=== PATIENT | female | born 1960 | race Hispanic/Latino ===

== ENCOUNTER 2017-03-27 13:57 | Emergency (ER) | payer MEDICAID ==
[2017-03-27] MEDS ORDERED: guaiFENesin 200 mg/10 ml Syrup UD PO ONE (15:02)
[2017-03-27] MEDS ORDERED: Albuterol-Ipratrop 3 mg / 0.5 (3 ml) UD IH STA (15:02)
--- NOTE | 2017-03-27 15:16 | RAD ---
HISTORY: cough COMPARISON: Chest x-ray performed 11/14/16 TECHNIQUE: Chest PA and lateral FINDINGS: Examination limited by habitus. LUNGS: Nodular density at the left lung base suspected to reflect nipple shadow. Please note that chest x-ray has limited sensitivity for the detection of pulmonary masses. PLEURA: No significant pleural effusion identified. No definite pneumothorax . CARDIOVASCULAR: The cardiomediastinal silhouette appears within normal limits of size. OSSEOUS STRUCTURES: Degenerative changes of the spine. VISUALIZED UPPER ABDOMEN: Eventration of the right hemidiaphragm. OTHER FINDINGS: None. IMPRESSION: Nodular density at the left lung base appears to reflect nipple shadow. Repeat study with nipple markers may be considered if indicated.
[2017-03-27] MEDS ORDERED: guaiFENesin 100 mg/5 ml Syrup UD ONE (15:22)
--- NOTE | 2017-03-27 15:24 | ED PDOC ---
HPI: General Adult Time Seen by Provider: 03/27/17 14:24 Chief Complaint (Nursing): Flu-like Symptoms Chief Complaint (Provider): Flu-like Symptoms History Per: Patient History/Exam Limitations: no limitations Onset/Duration Of Symptoms: Days Additional Complaint(s): 56 y/o female with a past medical history of hypercholesterolemia and hypertension (not treating with medications; only takes [place]-3) presents to the emergency department with 4 day h/o fever, body aches, cough, productive sputum, chills, headache, sinus congestion, runny nose, and 3 episodes of vomiting (non-bloody, last night, no vomiting today). Denies chest pain, shortness of breath, difficulty breathing, palpitations, dizziness, abdominal pain or diarrhea. PMD: Dr. Triana Past Medical History Reviewed: Historical Data, Nursing Documentation, Vital Signs Vital Signs: Last Vital Signs Temp 98.3 F 03/27/17 16:24 Pulse 85 03/27/17 16:24 Resp 16 03/27/17 16:24 BP 111/76 03/27/17 16:24 Pulse Ox 97 03/27/17 16:24 - Medical History PMH: HTN, Hypercholesterolemia Denies: Chronic Kidney Disease - Surgical History Surgical History: Appendectomy - Family History Family History: States: Unknown Family Hx - Immunization History Hx Tetanus Toxoid Vaccination: No Hx Influenza Vaccination: No Hx Pneumococcal Vaccination: No - Home Medications Home Medications: Ambulatory Orders Medication Instructions Recorded Albuterol 0.083% [Albuterol 3 ml IH Q4 #100 neb 03/27/17 Sulfate 3 Ml] Albuterol HFA [Ventolin HFA 90 2 puff IH [id number] #1 puff 03/27/17 mcg/actuation (8 g)] Azithromycin [Z-Baljit] 250 mg PO DAILY #6 tab 03/27/17 Guaifenesin 400 mg PO QID #20 tablet 03/27/17 Nebulizer [Aeroeclipse] 1 each MC PRN PRN #1 each 03/27/17 - Allergies Allergies/Adverse Reactions: Allergies Allergy/AdvReac Type Severity Reaction Status Date / Time No Known Allergies Allergy Verified 03/27/17 14:02 Review of Systems ROS Statement: Except As Marked, All Systems Reviewed And Found Negative Constitutional: Positive for: Fever, Chills, Other (body aches) ENT: Positive for: Nose Discharge, Nose Congestion Cardiovascular: Negative for: Chest Pain, Palpitations Respiratory: Positive for: Cough, Sputum (Productive). Negative for: Shortness of Breath, Other (difficulty breathing) Gastrointestinal: Positive for: Vomiting (3 episodes ). Negative for: Abdominal Pain, Diarrhea Neurological: Positive for: Headache. Negative for: Dizziness Physical Exam - Reviewed Nursing Documentation Reviewed: Yes Vital Signs Reviewed: Yes - Physical Exam Appears: Positive for: Non-toxic, No Acute Distress Head Exam: Positive for: ATRAUMATIC, NORMOCEPHALIC Skin: Positive for: Normal Color, Warm, Dry Eye Exam: Positive for: Normal appearance, EOMI, PERRL ENT: Positive for: Normal ENT Inspection. Negative for: Pharyngeal Erythema Neck: Positive for: Normal, Supple Cardiovascular/Chest: Positive for: Regular Rate, Rhythm. Negative for: Murmur Respiratory: Positive for: Rhonchi (Scattered rhonci). Negative for: Accessory Muscle Use, Respiratory Distress Gastrointestinal/Abdominal: Positive for: Normal Exam, Soft. Negative for: Tenderness Back: Positive for: Normal Inspection Extremity: Positive for: Normal ROM. Negative for: Pedal Edema Neurologic/Psych: Positive for: Alert, Oriented - ECG O2 Sat by Pulse Oximetry: 100 (RA) Pulse Ox Interpretation: Normal Medical Decision Making Medical Decision Making: Time: 14:24 Initial impression: Flu-like symptoms Initial plan: --Chest Two Views (PA/LAT) (RAD) --Duoneb 3 ml IH --Robitussin 400 mg PO --Motrin 600 mg PO --Peak Flow PRE/POST TX --revaluation CXR: NAD, as read by PA. On re-evaluation, patient remains awake, alert and oriented x3, in no respiratory distress, speaking in full sentences. States that she feels better and has no additional complaints at this time. Denies headache, chest pain, dyspnea, palpitations, SOB, nausea or any other complaints. Repeat lung exam, BS clear equal b/l, no W/R/R. Diagnostic results d/w the patient in great detail. Advised that she needs to f/u her BP with her PMD without fail. Based on history, exam and diagnostic studies, plan will be for outpatient f/u with pmd. VS T98.3 P85 BP111/76 R16 97%RA Patient verbalize understanding of the need for further outpatient care and follow up treatment. The patient was given the opportunity to ask any questions. Follow up with pmd in 2 days without fail for re-evaluation.Take medications as prescribed. Return to the ER at any time for any new or worsening symptoms. Scribe Attestation: Documented by Delmi Palacios, acting as a scribe for Sharmila Phelan PA-C. Provider Scribe Attestation: All medical record entries made by the Scribe were at my direction and personally dictated by me. I have reviewed the chart and agree that the record accurately reflects my personal performance of the history, physical exam, medical decision making, and the department course for this patient. I have also personally directed, reviewed, and agree with the discharge instructions and disposition. Disposition - Clinical Impression Clinical Impression: Bronchitis - Disposition Disposition: Routine/Home Disposition Time: 16:00 Condition: IMPROVED Additional Instructions: Follow up with pmd in 2 days without fail for re-evaluation.Take medications as prescribed. Return to the ER at any time for any new or worsening symptoms. Prescriptions: Albuterol HFA [Ventolin HFA 90 mcg/actuation (8 g)] 2 puff IH [id number] #1 puff Albuterol 0.083% [Albuterol Sulfate 3 Ml] 3 ml IH Q4 #100 neb Azithromycin [Z-Baljit] 250 mg PO DAILY #6 tab Guaifenesin 400 mg PO QID #20 tablet Nebulizer [Aeroeclipse] 1 each MC PRN PRN #1 each PRN Reason: Cough Instructions: Acute Bronchitis (ED) Forms: [facility] ED School/Work Excuse Print Language: AMHARIC - PA / [employer] / Resident Statement MD/DO has reviewed & agrees with the documentation as recorded.
[2017-03-27] MEDS ORDERED: Albuterol-Ipratrop 3 mg / 0.5 (3 ml) UD ONE (15:28)
[2017-03-27 16:25] VITALS: BP 111/76; PULSE 85; RESP 16; TEMP 98.3
[2017-03-27 17:31] VITALS: O2SAT 100
== END 2017-03-27 16:49 | disposition home or self-care (01) ==
LOC: H.ER 13:57
DX: J40 Bronchitis, not specified as acute or chronic (principal); I10 Essential (primary) hypertension; E78.00 Pure hypercholesterolemia, unspecified; R05 Cough

== ENCOUNTER 2017-08-18 20:52 | Emergency (ER) | payer MEDICAID ==
[2017-08-18 21:22] VITALS: BP 140/93; PULSE 74; RESP 16; TEMP 98; O2SAT 99
[2017-08-18] MEDS ORDERED: Sodium Chloride 0.9% 1,000 ML IV STA (21:38)
[2017-08-18 21:48] LABS: BASO # 0.1 K/uL (0.0-0.2); BASO % 1.5 % (0.0-2.0); EOS # 0.1 K/uL (0.0-0.7); EOS % 1.5 % (0.0-4.0); LYMPH # 1.6 K/uL (1.0-4.3); MEAN CELL VOLUME 94.3 fl (81.0-99.0); MEAN CORPUSCULAR HGB CONC 32.9 g/dL (33.0-37.0); MEAN PLATELET VOLUME 8.9 fl (7.2-11.7); MONO # 0.6 K/uL (0.0-0.8); NEUT # 2.9 K/uL (1.8-7.0); NRBC % 0.2 % (0.0-0.0); RED CELL DISTRIBUTION WIDTH 13.9 % (11.5-14.5); WHITE BLOOD COUNT 5.2 K/uL (4.8-10.8)
[2017-08-18 21:54] LABS: BLOOD UREA NITROGEN 16 mg/dl (7-17); CALCIUM 8.7 mg/dL (8.4-10.2); CARBON DIOXIDE 22 mmol/L (22-30); CHLORIDE 107 mmol/L (98-107); GFR AFRICAN-AMERICAN > 60; GLUCOSE,RANDOM 89 mg/dL (65-105); SODIUM 141 mmol/l (132-148)
[2017-08-18 21:57] LABS: POTASSIUM 5.4 MMOL/L (3.6-5.0)
--- NOTE | 2017-08-18 22:08 | ED PDOC ---
Syncope/Near Syncope/Dizziness Time Seen by Provider: 08/18/17 21:20 Chief Complaint (Nursing): Dizziness/Lightheaded Chief Complaint (Provider): Dizziness/Lightheaded History Per: Patient History/Exam Limitations: no limitations Onset/Duration Of Symptoms: Days (x3) Current Symptoms Are (Timing): Still Present Additional Complaint(s): Becca Espitia is a 56 year old female with previous medical history of psychiatric disease, hypertension and hypercholesterolemia, who presents to the emergency department for an evaluation of dizziness associated with room spinning and loss of consciousness for "a few moments" on 08/16/17. Denied chest pain or shortness of breath. PMD: none provided Past Medical History Reviewed: Historical Data, Nursing Documentation, Vital Signs Vital Signs: Last Vital Signs Temp 98 F 08/18/17 21:19 Pulse 74 08/18/17 21:19 Resp 16 08/18/17 21:19 BP 140/93 H 08/18/17 21:19 Pulse Ox 99 08/18/17 21:19 - Medical History PMH: HTN, Hypercholesterolemia Denies: Chronic Kidney Disease - Surgical History Surgical History: Appendectomy - Family History Family History: States: Unknown Family Hx - Social History Current smoker - smoking cessation education provided: No Ex-Smoker (has not smoked in the last 12 months): No Alcohol: Occasional Drugs: Denies - Immunization History Hx Tetanus Toxoid Vaccination: No Hx Influenza Vaccination: No Hx Pneumococcal Vaccination: No - Home Medications Home Medications: Ambulatory Orders Medication Instructions Recorded Albuterol 0.083% [Albuterol 3 ml IH Q4 #100 neb 03/27/17 Sulfate 3 Ml] Albuterol HFA [Ventolin HFA 90 2 puff IH [id number] #1 puff 03/27/17 mcg/actuation (8 g)] Azithromycin [Z-Baljit] 250 mg PO DAILY #6 tab 03/27/17 Guaifenesin 400 mg PO QID #20 tablet 03/27/17 Nebulizer [Aeroeclipse] 1 each MC PRN PRN #1 each 03/27/17 Meclizine [Meclizine*] 25 mg PO Q6 #30 tab 08/18/17 - Allergies Allergies/Adverse Reactions: Allergies Allergy/AdvReac Type Severity Reaction Status Date / Time No Known Allergies Allergy Verified 03/27/17 14:02 Review of Systems ROS Statement: Except As Marked, All Systems Reviewed And Found Negative Cardiovascular: Negative for: Chest Pain Respiratory: Negative for: Shortness of Breath Gastrointestinal: Positive for: Nausea, Vomiting (x1) Neurological: Positive for: Dizziness (with room spins), Other (loss of consciousness) Physical Exam - Reviewed Nursing Documentation Reviewed: Yes Vital Signs Reviewed: Yes - Physical Exam Appears: Positive for: Well, Non-toxic, No Acute Distress Head Exam: Positive for: ATRAUMATIC, NORMAL INSPECTION, NORMOCEPHALIC Skin: Positive for: Normal Color Eye Exam: Positive for: Normal appearance, EOMI, PERRL. Negative for: Nystagmus ENT: Positive for: Normal ENT Inspection Neck: Positive for: Normal, Painless ROM, Supple. Negative for: Decreased ROM Cardiovascular/Chest: Positive for: Regular Rate, Rhythm, Chest Non Tender Respiratory: Positive for: Normal Breath Sounds, Accessory Muscle Use. Negative for: Decreased Breath Sounds, Respiratory Distress Gastrointestinal/Abdominal: Positive for: Normal Exam, Bowel Sounds, Soft. Negative for: Tenderness Extremity: Positive for: Normal ROM. Negative for: Tenderness, Pedal Edema, Deformity Neurologic/Psych: Positive for: Alert, Oriented - Laboratory Results Result Diagrams: 08/18/17 21:43 08/18/17 21:43 - ECG O2 Sat by Pulse Oximetry: 99 (RA) Pulse Ox Interpretation: Normal Medical Decision Making Medical Decision Making: Initial Impression: Peripheral vertigo Initial Plan: * CT head without contrast * BMP * Troponin I * CBC * Antivert 50mg PO * NS 1,000ml IV per 500mls/hr * Reglan 10mg IVPB * Urinalysis Time: 2144 --EKG: NSR at [address] or T-wave changes noted. 0 CT head negative Patient much improved, no longer feeling dizzy. Able to walk without dizziness. Will d/c home, told to f/u w/ PMD in 1- 2 days. Return precautions given. Scribe Attestation: Documented by Reshma Mccormick, acting as a scribe for Amanda Dalal MD. Provider Scribe Attestation: All medical record entries made by the Scribe were at my direction and personally dictated by me. I have reviewed the chart and agree that the record accurately reflects my personal performance of the history, physical exam, medical decision making, and the department course for this patient. I have also personally directed, reviewed, and agree with the discharge instructions and disposition. Disposition - Clinical Impression Clinical Impression: Vertigo - Disposition Referrals: [facility] [Outside] Disposition: Routine/Home Disposition Time: 23:30 Condition: STABLE Prescriptions: Meclizine [Meclizine*] 25 mg PO Q6 #30 tab Instructions: Vertigo (ED), Syncope (ED), Dizziness (ED) Forms: [employer] [facility] ([place] Citizen) Print Language: BELARUSIAN
--- NOTE | 2017-08-18 22:37 | CT ---
EXAM: CT Head Without Intravenous Contrast CLINICAL HISTORY: 56 years old, female; Signs and symptoms; Dizziness and syncope and collapse; Additional info: Dizziness, syncope TECHNIQUE: Axial computed tomography images of the head/brain without intravenous contrast. All CT scans at this facility use one or more dose reduction techniques, viz.: automated exposure control; ma/kV adjustment per patient size (including targeted exams where dose is matched to indication; i.e. head); or iterative reconstruction technique. Coronal and sagittal reformatted images were created and reviewed. COMPARISON: CT - HEAD W/O CONTRAST 12/01/2015 8:44:21 PM FINDINGS: Brain: No intracranial hemorrhage. No mass. No definite edema. Ventricles: No hydrocephalus. Bones/joints: No acute fracture. Soft tissues: Unremarkable. Sinuses: Scattered minimal mucosal thickening. Mastoid air cells: No mastoid effusion. Orbits: Unremarkable as visualized. IMPRESSION: 1. No acute intracranial abnormality. 2. Incidental/non-acute findings are described above.
[2017-08-18 23:10] LABS: RBC URINE 2 /hpf (0-3); URINE BACTERIA RARE (<OCC); URINE BILIRUBIN NEGATIVE (NEGATIVE); URINE BLOOD NEGATIVE (NEGATIVE); URINE COLOR STRAW (YELLOW); URINE GLUCOSE (UA) NEG (Normal); URINE KETONE NEGATIVE (NEGATIVE); URINE LEUKOCYTE ESTERASE TRACE Leu/uL (Negative); URINE PROTEIN NEGATIVE (NEGATIVE); URINE UROBILINOGEN 0.2-1.0 mg/dL (0.2-1.0); WBC URINE 2 /hpf (0-5)
== END 2017-08-18 23:45 | disposition home or self-care (01) ==
LOC: H.ER 20:52
DX: R42 Dizziness and giddiness (principal)
CPT/HCPCS: 70450; 80048; 81003; 84484; 85025; 96374; 99284; J2765; J7040

== ENCOUNTER 2017-10-16 14:19 | Emergency (ER) | payer MEDICAID, OTHER ==
[2017-10-16 14:31] VITALS: PULSE 91
[2017-10-16] MEDS ORDERED: Sodium Chloride 0.9% 1,000 ML IV STA (14:51)
[2017-10-16 15:30] LABS: BASO # 0.1 K/uL (0.0-0.2); BASO % 0.6 % (0.0-2.0); EOS % 0.6 % (0.0-4.0); LYMPH # 1.6 K/uL (1.0-4.3); LYMPH % 19.4 % (20.0-40.0); MEAN CELL VOLUME 93.9 fl (81.0-99.0); MEAN CORPUSCULAR HEMOGLOBIN 30.8 pg (27.0-31.0); MEAN CORPUSCULAR HGB CONC 32.8 g/dL (33.0-37.0); MEAN PLATELET VOLUME 8.4 fl (7.2-11.7); MONO # 0.8 K/uL (0.0-0.8); MONO % 9.8 % (0.0-10.0); NEUT # 5.6 K/uL (1.8-7.0); NEUT % 69.6 % (50.0-75.0); RED CELL DISTRIBUTION WIDTH 13.6 % (11.5-14.5)
[2017-10-16 15:46] LABS: ALB/GLOB RATIO 1.3 (1.0-2.1); ALKALINE PHOSPHATASE 96 U/L (38-126); ALT/SGPT 39 U/L (9-52); AST/SGOT 25 U/L (14-36); BILIRUBIN,TOTAL 0.4 mg/dl (0.2-1.3); BLOOD UREA NITROGEN 15 mg/dl (7-17); CALCIUM 9.2 mg/dL (8.4-10.2); CARBON DIOXIDE 27 mmol/L (22-30); CHLORIDE 107 mmol/L (98-107); GFR AFRICAN-AMERICAN > 60; GLUCOSE,RANDOM 89 mg/dL (65-105); SODIUM 142 mmol/l (132-148); TOTAL PROTEIN 7.5 G/DL (6.3-8.2)
[2017-10-16 15:48] LABS: RBC URINE 5 /hpf (0-3); URINE BILIRUBIN NEGATIVE (NEGATIVE); URINE BLOOD NEGATIVE (NEGATIVE); URINE COLOR YELLOW (YELLOW); URINE GLUCOSE (UA) NEG (Normal); URINE KETONE NEGATIVE (NEGATIVE); URINE LEUKOCYTE ESTERASE NEG Leu/uL (Negative); URINE PROTEIN NEGATIVE (NEGATIVE); URINE UROBILINOGEN 0.2-1.0 mg/dL (0.2-1.0); WBC URINE < 1 /hpf (0-5)
--- NOTE | 2017-10-16 16:33 | ED PDOC ---
HPI: General Adult Time Seen by Provider: 10/16/17 14:45 Chief Complaint (Nursing): Flu-like Symptoms Chief Complaint (Provider): vomiting/headache/bodyaches History Per: Patient (56 y/o female here with vomiting today associated with headaches/bodyaches. Has taken tylenol/advil without relief. NOtes mild cough. Denies any URI. NOted dizziness similar to h/o vertigo. Denies any dysuria/ abdominal pain. Notes mild sore throat as well.) Past Medical History Reviewed: Historical Data, Nursing Documentation, Vital Signs Vital Signs: Last Vital Signs Temp 98.0 F 10/16/17 14:28 Pulse 91 H 10/16/17 14:28 Resp 16 10/16/17 14:28 BP 140/94 H 10/16/17 14:28 Pulse Ox 97 10/16/17 17:35 - Medical History PMH: HTN, Hypercholesterolemia Denies: Chronic Kidney Disease - Surgical History Surgical History: Appendectomy - Family History Family History: States: Unknown Family Hx - Immunization History Hx Tetanus Toxoid Vaccination: No Hx Influenza Vaccination: No Hx Pneumococcal Vaccination: No - Home Medications Home Medications: Ambulatory Orders Medication Instructions Recorded Albuterol 0.083% [Albuterol 3 ml IH Q4 #100 neb 03/27/17 Sulfate 3 Ml] Albuterol HFA [Ventolin HFA 90 2 puff IH [id number] #1 puff 03/27/17 mcg/actuation (8 g)] Azithromycin [Z-Baljit] 250 mg PO DAILY #6 tab 03/27/17 Guaifenesin 400 mg PO QID #20 tablet 03/27/17 Nebulizer [Aeroeclipse] 1 each MC PRN PRN #1 each 03/27/17 Meclizine [Meclizine*] 25 mg PO Q6 #30 tab 08/18/17 Meclizine [Antivert] 12.5 mg PO Q6 PRN #10 tab 10/16/17 - Allergies Allergies/Adverse Reactions: Allergies Allergy/AdvReac Type Severity Reaction Status Date / Time No Known Allergies Allergy Verified 03/27/17 14:02 Review of Systems ROS Statement: Except As Marked, All Systems Reviewed And Found Negative ENT: Positive for: Nose Congestion Respiratory: Positive for: Cough Gastrointestinal: Positive for: Vomiting Physical Exam - Reviewed Nursing Documentation Reviewed: Yes Vital Signs Reviewed: Yes - Physical Exam Appears: Positive for: Well, Non-toxic, No Acute Distress Head Exam: Positive for: ATRAUMATIC, NORMAL INSPECTION, NORMOCEPHALIC Skin: Positive for: Normal Color, Warm, DRY Eye Exam: Positive for: EOMI, Normal appearance, PERRL ENT: Positive for: Normal ENT Inspection Neck: Positive for: Normal, Painless ROM Cardiovascular/Chest: Positive for: Regular Rate, Rhythm Respiratory: Positive for: CNT, Normal Breath Sounds Gastrointestinal/Abdominal: Positive for: Normal Exam, Bowel Sounds, Soft Back: Positive for: Normal Inspection Extremity: Positive for: Normal ROM Neurologic/Psych: Positive for: Alert, Oriented - Laboratory Results Result Diagrams: 10/16/17 15:24 10/16/17 15:24 - ECG O2 Sat by Pulse Oximetry: 97 - Progress ED Course And Treament: ekg: nsr 82bpm; no ectopy; v5 ?artifact noted; no acute changes otherwise NS 1 liter wide open Reglan 10 mg iv x 1 dose Influenza a/b neg rapid strep neg cxr: nad Symptoms improved over ED stay. repeat EKG: nsr 85bpm; no ectopy/no acute changes Disposition - Clinical Impression Clinical Impression: Dizziness, Vertigo, Viral illness - Patient ED Disposition Is Patient to be Admitted: No - Disposition Referrals: [facility] [Outside] Disposition: Routine/Home Disposition Time: 17:56 Condition: FAIR Prescriptions: Meclizine [Antivert] 12.5 mg PO Q6 PRN #10 tab PRN Reason: Dizziness Instructions: Vertigo (ED), Viral Syndrome (ED) Forms: [employer] ([place]qi)
[2017-10-16 18:08] VITALS: BP 153/89; RESP 18; TEMP 98.6; O2SAT 100
--- NOTE | 2017-10-17 11:57 | CARD ---
APPROVED REPORT EKG Measurement Heart [id number] P53 [id number] <Conclusion> Normal sinus rhythm Abnormal ECG baseline artefact in lead V5
== END 2017-10-16 18:05 | disposition home or self-care (01) ==
LOC: H.ER 14:19
DX: R42 Dizziness and giddiness (principal); B34.9 Viral infection, unspecified; E78.00 Pure hypercholesterolemia, unspecified; I10 Essential (primary) hypertension
CPT/HCPCS: 80053; 81003; 85025; 87070; 87086; 87430; 87804; 93005; 96374; 99284; J2765; J7040

== ENCOUNTER 2018-08-19 20:03 | Emergency (ER) | payer MEDICAID ==
[2018-08-19 20:15] VITALS: TEMP 98
[2018-08-19] MEDS ORDERED: Tobramycin 0.3% OPHT SOLN OD ONE (22:00)
[2018-08-19 22:16] LABS: BASO # 0.1 K/uL (0.0-0.2); EOS # 0.1 K/uL (0.0-0.7); EOS % 1.9 % (0.0-4.0); HEMOGLOBIN 14.2 g/dL (12.0-16.0); LYMPH # 2.2 K/uL (1.0-4.3); LYMPH % 36.3 % (20.0-40.0); MEAN CELL VOLUME 93.5 fl (81.0-99.0); MEAN CORPUSCULAR HEMOGLOBIN 31.6 pg (27.0-31.0); MEAN CORPUSCULAR HGB CONC 33.8 g/dL (33.0-37.0); MEAN PLATELET VOLUME 8.1 fl (7.2-11.7); MONO # 0.6 K/uL (0.0-0.8); MONO % 9.9 % (0.0-10.0); NEUT # 3.1 K/uL (1.8-7.0); NEUT % 50.9 % (50.0-75.0); RBC 4.51 Mil/uL (3.80-5.20); RED CELL DISTRIBUTION WIDTH 13.4 % (11.5-14.5); WHITE BLOOD COUNT 6.1 K/uL (4.8-10.8)
[2018-08-19 22:18] LABS: INR 0.9; PROTHROMBIN TIME 10.4 Seconds (9.8-13.1)
--- NOTE | 2018-08-19 22:19 | ED PDOC ---
HPI: Headache Time Seen by Provider: 08/19/18 21:01 Chief Complaint (Nursing): Eye Problem Chief Complaint (Provider): Eye Problem History Per: Greenhouse Manager ([id number]) History/Exam Limitations: no limitations Onset/Duration Of Symptoms: Days (yesterday) Current Symptoms Are (Timing): Still Present Quality: Pressure Associated Symptoms: denies: Blurred Vision, Nausea, Vomiting Additional Complaint(s): 57 year old female with no significant medical history presents to the ED for evaluation of right eye irritation that started yesterday. Patient states that at first, there was painless redness associated increased tearing. Today, she describes pressure like pain with crusting when she woke up. She was also concerned because someone told her that her blood pressure may be high, even though she has no history of hypertension. Patient is also complaining of global headache that is an 8 out of 10 in severity, ongoing for the last 3 days. She states she has been getting frequent headaches for the last 10 years but has not been evaluated for them. Patient denies itching to eye, foreign body sensation, change in vision, contact use but she does wear glasses. She has no chills, fever, chest pain, dizziness, nausea, vomiting, abdominal pain or any other medical complaints. PMD: Dr. Fitzpatrick Past Medical History Reviewed: Historical Data, Nursing Documentation, Vital Signs Vital Signs: Last Vital Signs Temp 98 F 08/19/18 20:12 Pulse 75 08/19/18 21:04 Resp 18 08/19/18 20:12 BP 140/90 08/19/18 21:04 Pulse Ox 97 08/19/18 21:04 - Medical History PMH: HTN, Hypercholesterolemia Denies: Chronic Kidney Disease - Surgical History Surgical History: Appendectomy - Family History Family History: States: Unknown Family Hx - Social History Current smoker - smoking cessation education provided: No Ex-Smoker (has not smoked in the last 12 months): No Alcohol: None Drugs: Denies - Immunization History Hx Tetanus Toxoid Vaccination: No Hx Influenza Vaccination: No Hx Pneumococcal Vaccination: No - Home Medications Home Medications: Ambulatory Orders Medication Instructions Recorded Albuterol 0.083% [Albuterol 3 ml IH Q4 #100 neb 03/27/17 Sulfate 3 Ml] Albuterol HFA [Ventolin HFA 90 2 puff IH [id number] #1 puff 03/27/17 mcg/actuation (8 g)] Azithromycin [Z-Baljit] 250 mg PO DAILY #6 tab 03/27/17 Guaifenesin 400 mg PO QID #20 tablet 03/27/17 Nebulizer [Aeroeclipse] 1 each MC PRN PRN #1 each 03/27/17 Meclizine [Meclizine*] 25 mg PO Q6 #30 tab 08/18/17 Meclizine [Antivert] 12.5 mg PO Q6 PRN #10 tab 10/16/17 Acetaminophen [Acetaminophen 8 650 mg PO Q8 PRN #21 tablet.er 08/20/18 Hour] Naproxen 500 mg PO BID PRN #20 tab 08/20/18 Tobramycin 0.3% [Tobrex 0.3% Ophth 1 drop OD Q6 #1 bottle 08/20/18 Soln] - Allergies Allergies/Adverse Reactions: Allergies Allergy/AdvReac Type Severity Reaction Status Date / Time No Known Allergies Allergy Verified 08/19/18 20:12 Review of Systems ROS Statement: Except As Marked, All Systems Reviewed And Found Negative Constitutional: Negative for: Fever, Chills Eyes: Positive for: Pain (pressure in right eye), Redness (painless), Other (right eye irritation, increased tearing, crusting). Negative for: Vision Lin ge Cardiovascular: Negative for: Chest Pain Gastrointestinal: Negative for: Nausea, Vomiting, Abdominal Pain Neurological: Positive for: Headache. Negative for: Dizziness Physical Exam - Reviewed Nursing Documentation Reviewed: Yes Vital Signs Reviewed: Yes - Physical Exam Comments: GENERAL APPEARANCE: Patient is awake, alert, oriented x 3, in no acute distress. HEENT: (-) facial swelling and erythema, (-) facial blisters. EYES: no periorbital edema, tenderness, or erythema. No crusting, no visual mucous discharge. PUPILS: Pupils equal and reactive. EOM's: Intact and painless. CONJUNCTIVAE: Diffuse injection of right eye. CHEST AND RESPIRATORY: (-) rales, (-) rhonchi, (-) wheezes; breath sounds equal bilaterally. HEART AND CARDIOVASCULAR: (-) irregularity; (-) murmur, (-) gallop. ABDOMEN AND GI: Soft; (-) distention, (-) tenderness, (-) rebound, (-) guarding, (-) palpable masses, (-) flank tenderness. - Laboratory Results Result Diagrams: 08/19/18 22:06 08/19/18 22:06 Urine dip results: Negative for: Leukocyte Esterase, Blood, Nitrate, Ketones, Glucose, Bilirubin, Protein - ECG O2 Sat by Pulse Oximetry: 97 (RA) Pulse Ox Interpretation: Normal Medical Decision Making Medical Decision Making: Time: 2144 Initial Impression: Conjunctivitis, Headache Initial Plan: --CT Head w/o contrast --EKG --BMP --U dip --CBC w/ differentials --PTT --Prothrombin time --Tobramycin 0.3% 1 drop OD 5 Udip reviewed and unremarkable. 2229 EKG: NSR @ 72bpm (-) ST elevation (-) ectopy, QTc 440. [address]: No acute intracranial abnormality. Electronically signed on Aug 19, 2018 11:19:47 PM EDT by Mikala Pope M.D. Visual acuity (without glasses): R: 20/40 L: 20/50 Both: 20/40 Repeat BP: 138/86 On re-evaluation, patient reports improvement of symptoms. On exam, patient remains AAOx3, in no acute distress. Lungs CTA, cardiac RRR, abdomen soft, nontender, repeat neuro exam shows no focal findings. Vitals stable. Lab/Diagnostic results d/w with the patient in great detail. Diagnosis of con junctivitis, headache d/w patient. Based on history, exam, and diagnostic results, plan will be for outpatient follow up. Patient instructed to follow up with PMD / referral provided / the clinic in 1-2 days without fail. Advised to take medication as prescribed. Return to the emergency room at any time for any new or worsening symptoms. Patient states she agrees with and understandings discharge instructions. States that she agrees with the plan and disposition. Verbalized and repeated discharge instructions and plan. I have given the patient opportunity to ask any additional questions. -- Scribe Attestation: Documented by Klaudia Cook, acting as a scribe for Cristin Maldonado PA-C Provider Scribe Attestation: All medical record entries made by the Scribe were at my direction and personall y dictated by me. I have reviewed the chart and agree that the record accurately reflects my personal performance of the history, physical exam, medical decision making, and the department course for this patient. I have also personally directed, reviewed, and agree with the discharge instructions and disposition. Disposition - Clinical Impression Clinical Impression: Acute headache, Conjunctivitis, Conjunctival injection, Elevated blood pressure reading - Patient ED Disposition Is Patient to be Admitted: No Counseled Patient/Family Regarding: Studies Performed, Diagnosis, Need For Followup, Rx Given - Disposition Referrals: Mayela Fitzpatrick APN [Family Provider] - Don Adair MD [Medical Doctor] - Disposition: Routine/Home Disposition Time: 00:15 Condition: STABLE Additional Instructions: La atencin mdica de emergencia que recibi hoy se dirigi hacia vee sntomas agudos. Si le recetaron un medicamento, llnelo en la farmacia y tmelo segn las indicaciones. Los sntomas pueden tardar varios silva en resolverse. Regrese al departamento de emergencias si vee sntomas empeoran, no mejoran o si tiene otros problemas. Comunquese con singer mdico / proveedor / clnica referida en 2 silva para marquise evaluacin adicional. El tratamiento en el departamento de emergencias no puede reemplazar la atencin mdica en curso por parte de un mdico de cabecera fuera del departamento de emergencias. Prescriptions: Acetaminophen [Acetaminophen 8 Hour] 650 mg PO Q8 PRN #21 tablet.er PRN Reason: Headache Naproxen 500 mg PO BID PRN #20 tab PRN Reason: Headache Tobramycin 0.3% [Tobrex 0.3% Oph Soln] 1 drop OD Q6 #1 bottle Instructions: High Blood Pressure in Adults, Headache, Adult, Conjunctivitis ([place]), Acute Headache (ED), Hypotension (ED), Hypertension (ED) Forms: [employer] (Bermudian) Print Language: NAMIBIAN - POA Present On Arrival: None Results - Lab Results Lab Results: 08/19/18 08/19/18 08/19/18 22:06 22:06 22:06 WBC 6.1 RBC 4.51 Hgb 14.2 Hct 42.2 MCV 93.5 MCH 31.6 H MCHC 33.8 RDW 13.4 Plt Count 315 MPV 8.1 Neut % (Auto) 50.9 Lymph % (Auto) 36.3 Bracken % (Auto) 9.9 Eos % (Auto) 1.9 Baso % (Auto) 1.0 Neut # (Auto) 3.1 Lymph # (Auto) 2.2 Bracken # (Auto) 0.6 Eos # (Auto) 0.1 Baso # (Auto) 0.1 PT 10.4 INR 0.9 APTT 38.6 H Sodium 142 Potassium 4.4 Chloride 105 Carbon Dioxide 30 Anion Gap 11 BUN 13 Creatinine 0.8 Est GFR ( Amer) > 60 Est GFR (Non-Af Amer) > 60 Random Glucose 104 Calcium 9.7
[2018-08-19 22:21] LABS: PARTIAL THROMBOPLASTIN TIME 38.6 Seconds (25.6-37.1)
[2018-08-19 22:22] LABS: BLOOD UREA NITROGEN 13 mg/dl (7-17); CALCIUM 9.7 mg/dL (8.4-10.2); GFR NON-AFRICAN AMERICAN > 60
[2018-08-20 00:11] VITALS: BP 138/86; PULSE 80; RESP 19
[2018-08-20 00:14] VITALS: O2SAT 97
--- NOTE | 2018-08-20 10:24 | CARD ---
APPROVED REPORT Date of service: 08/19/2018 EKG Measurement Heart [id number] <Conclusion> Normal sinus rhythm Normal ECG
--- NOTE | 2018-08-20 11:07 | CT ---
Date of service: 08/19/2018 PROCEDURE: CT HEAD WITHOUT CONTRAST. HISTORY: headache COMPARISON: Comparison is made with 08/18/2017 TECHNIQUE: Axial computed tomography images were obtained through the head/brain without intravenous contrast. Radiation dose: Total exam DLP = 804.92 mGy-cm. This CT exam was performed using one or more of the following dose reduction techniques: Automated exposure control, adjustment of the mA and/or kV according to patient size, and/or use of iterative reconstruction technique. FINDINGS: HEMORRHAGE: No intracranial hemorrhage. BRAIN: No mass effect or edema. No atrophy or chronic microvascular ischemic changes. VENTRICLES: Unremarkable. No hydrocephalus. CALVARIUM: Unremarkable. PARANASAL SINUSES: Unremarkable as visualized. No significant inflammatory changes. MASTOID AIR CELLS: Unremarkable as visualized. No inflammatory changes. OTHER FINDINGS: None. IMPRESSION: No evidence of acute intracranial hemorrhage mass effect or midline shift. No significant interval changes noted since the previous exam. The preliminary findings for this examination were reported by [facility] at {11:19 p.m.} on {08/19/2018} there is discordance of this report with the preliminary findings.
== END 2018-08-20 00:35 | disposition home or self-care (01) ==
LOC: H.ER 20:03
DX: R51 Headache (principal); I10 Essential (primary) hypertension; H10.9 Unspecified conjunctivitis

== ENCOUNTER 2018-11-21 19:52 | Emergency (ER) | payer MEDICAID ==
[2018-11-21 20:09] VITALS: O2SAT 99
[2018-11-21 21:33] LABS: BASO # 0.1 K/uL (0.0-0.2); BASO % 1.3 % (0.0-2.0); EOS # 0.1 K/uL (0.0-0.7); EOS % 1.3 % (0.0-4.0); HEMOGLOBIN 14.3 g/dL (12.0-16.0); LYMPH # 1.5 K/uL (1.0-4.3); LYMPH % 34.6 % (20.0-40.0); MEAN CELL VOLUME 93.2 fl (81.0-99.0); MEAN CORPUSCULAR HEMOGLOBIN 31.1 pg (27.0-31.0); MEAN CORPUSCULAR HGB CONC 33.4 g/dL (33.0-37.0); MEAN PLATELET VOLUME 8.2 fl (7.2-11.7); MONO # 0.6 K/uL (0.0-0.8); MONO % 13.7 % (0.0-10.0); NEUT # 2.1 K/uL (1.8-7.0); NEUT % 49.1 % (50.0-75.0); RBC 4.59 Mil/uL (3.80-5.20); RED CELL DISTRIBUTION WIDTH 13.4 % (11.5-14.5); WHITE BLOOD COUNT 4.3 K/uL (4.8-10.8)
--- NOTE | 2018-11-21 21:38 | ED PDOC ---
HPI: Abdomen Time Seen by Provider: 11/21/18 20:22 Chief Complaint (Nursing): Abdominal Pain Chief Complaint (Provider): Abdominal Pain History Per: Patient History/Exam Limitations: no limitations Onset/Duration Of Symptoms: Days (x3) Current Symptoms Are (Timing): Still Present Additional Complaint(s): 57 y/o female with a PMHx of borderline HTN presents to the ED for evaluation of mid-epigastric pain, onset three days ago. Patient states pain radiates throughout the abdomen and is associated with a headache, vomiting and subjective fevers. Patient reports she cannot tolerate any PO. History obtained through Kiswahili [employer] Administrative Assistant [id number]. PMD: Mayela Fitzpatrick Past Medical History Reviewed: Historical Data, Nursing Documentation, Vital Signs Vital Signs: Last Vital Signs Temp 98.1 F 11/21/18 20:06 Pulse 88 11/21/18 20:06 Resp 18 11/21/18 20:06 BP 138/100 H 11/21/18 20:06 Pulse Ox 99 11/21/18 20:06 - Medical History PMH: HTN (borderline ), Hypercholesterolemia Denies: Chronic Kidney Disease - Surgical History Surgical History: Appendectomy Other surgeries: Tubual Ligation and Liposuction - Family History Family History: States: Unknown Family Hx - Social History Current smoker - smoking cessation education provided: No Alcohol: None Drugs: Denies - Immunization History Hx Tetanus Toxoid Vaccination: No Hx Influenza Vaccination: No Hx Pneumococcal Vaccination: No - Home Medications Home Medications: Ambulatory Orders Medication Instructions Recorded Albuterol 0.083% [Albuterol 3 ml IH Q4 #100 neb 03/27/17 Sulfate 3 Ml] Albuterol HFA [Ventolin HFA 90 2 puff IH [id number] #1 puff 03/27/17 mcg/actuation (8 g)] Azithromycin [Z-Baljit] 250 mg PO DAILY #6 tab 03/27/17 RX: Guaifenesin 400 mg PO QID #20 tablet 03/27/17 RX: Nebulizer [Aeroeclipse] 1 each MC PRN PRN #1 each 03/27/17 RX: Meclizine [Meclizine*] 25 mg PO Q6 #30 tab 08/18/17 Meclizine [Antivert] 12.5 mg PO Q6 PRN #10 tab 10/16/17 Acetaminophen [Acetaminophen 8 650 mg PO Q8 PRN #21 tablet.er 08/20/18 Hour] RX: Naproxen 500 mg PO BID PRN #20 tab 08/20/18 RX: Tobramycin 0.3% [Tobrex 0.3% 1 drop OD Q6 #1 bottle 08/20/18 Ophth Soln] Dicyclomine [Bentyl] 20 mg PO BID #30 tab 11/22/18 Ondansetron ODT [Zofran ODT] 4 mg PO Q8 PRN #12 odt 11/22/18 RX: Ibuprofen [Motrin Tab] 600 mg PO Q6 #30 tab 11/22/18 - Allergies Allergies/Adverse Reactions: Allergies Allergy/AdvReac Type Severity Reaction Status Date / Time No Known Allergies Allergy Verified 08/19/18 20:12 Review of Systems ROS Statement: Except As Marked, All Systems Reviewed And Found Negative Constitutional: Positive for: Fever Gastrointestinal: Positive for: Vomiting, Abdominal Pain Neurological: Positive for: Headache Physical Exam - Reviewed Nursing Documentation Reviewed: Yes Vital Signs Reviewed: Yes - Physical Exam Appears: Positive for: Uncomfortable Head Exam: Positive for: ATRAUMATIC, NORMOCEPHALIC Skin: Positive for: Normal Color, Warm, Dry Eye Exam: Positive for: Normal appearance, EOMI, PERRL ENT: Positive for: Normal ENT Inspection Neck: Positive for: Normal, Painless ROM Cardiovascular/Chest: Positive for: Regular Rate, Rhythm. Negative for: Murmur Respiratory: Positive for: Normal Breath Sounds. Negative for: Respiratory Distress Gastrointestinal/Abdominal: Positive for: Tenderness (Mid-epigastric tenderness), Distended (slightly) Back: Positive for: Normal Inspection. Negative for: L CVA Tenderness, R CVA Tenderness, Vertebral Tenderness Extremity: Positive for: Normal ROM. Negative for: Pedal Edema, Deformity Neurologic/Psych: Positive for: Alert, Oriented. Negative for: Motor/Sensory Deficits - Laboratory Results Result Diagrams: 11/21/18 21:22 11/21/18 21:22 - ECG O2 Sat by Pulse Oximetry: 99 (RA) Pulse Ox Interpretation: Normal Medical Decision Making Medical Decision Making: Time: 2009 Plan: abdominal pain rule out electrolyte abnormality, infection -- EKG Time: 2104 Plan: -- CMP -- Lipase -- Troponin I -- CBC with Differentials Scribe Attestation: Documented by Alecia Padilla, acting as a scribe for Yolanda Cisneros MD. Provider Scribe Attestation: All medical record entries made by the Scribe were at my direction and personally dictated by me. I have reviewed the chart and agree that the record accurately reflects my personal performance of the history, physical exam, medical decision making, and the department course for this patient. I have also personally directed, reviewed, and agree with the discharge instructions and disposition. Disposition - Clinical Impression Clinical Impression: Gastroenteritis - Patient ED Disposition Is Patient to be Admitted: Transfer of Care - Disposition Referrals: Mayela Fitzpatrick APN [Family Provider] - Disposition: Transfer of Care Disposition Time: 19:00 Condition: STABLE Prescriptions: Dicyclomine [Bentyl] 20 mg PO BID #30 tab RX: Ibuprofen [Motrin Tab] 600 mg PO Q6 #30 tab Ondansetron ODT [Zofran ODT] 4 mg PO Q8 PRN #12 odt PRN Reason: Nausea/Vomiting Instructions: Gastroenteritis (ED) Forms: [employer] (Albanian), [facility] ED School/Work Excuse Print Language: ARABIC Patient Signed Over To: Mau Elkins Handoff Comments: pending labs, imaging
[2018-11-21 21:47] LABS: ALB/GLOB RATIO 1.4 (1.0-2.1); ALBUMIN 4.4 g/dL (3.5-5.0); ALT/SGPT 38 U/L (9-52); AST/SGOT 31 U/L (14-36); BLOOD UREA NITROGEN 15 mg/dl (7-17); CALCIUM 9.6 mg/dL (8.4-10.2); GFR NON-AFRICAN AMERICAN > 60; LIPASE 133 U/L (23-300)
[2018-11-21] MEDS ORDERED: Iohexol 240 (50 ml) PO ONE (21:49)
[2018-11-21] MEDS ORDERED: Iohexol 240 (50 ml) ONE (22:33)
--- NOTE | 2018-11-22 00:26 | ED PDOC ---
- Laboratory Results Result Diagrams: 11/21/18 21:22 11/21/18 21:22 Lab Results: Troponin I < 0.0120 ng/mL (0.00-0.120) 11/21/18 21: Total Bilirubin 0.3 mg/dl (0.2-1.3) 11/21/18 21:22 AST 31 U/L (14-36) 11/21/18 21: ALT 38 U/L (9-52) 11/21/18 21: Alkaline Phosphatase 94 U/L (38-126) 11/21/18 21: Total Protein 7.5 G/DL (6.3-8.2) 11/21/18 21: Albumin 4.4 g/dL (3.5-5.0) 11/21/18: Globulin 3.2 gm/dL (2.2-3.9) 11/21/18 21: Albumin/Globulin Ratio 1.4 (1.0-2.1) 11/21/18 21: Lipase 133 U/L (23-300) 11/21/18 21: - ECG O2 Sat by Pulse Oximetry: 99 (RA) Pulse Ox Interpretation: Normal Medical Decision Making Medical Decision Making: Time: 00:00 Patient care endorsed from Dr. Cisneros to provider pending CT 01:45 CT Abdomen Pelvis COMMENTS: Moderate sliding hiatal hernia. Minimal diffuse thickening of the gallbladder. The liver is of uniform attenuation without mass or defect. There is no intra or extrahepatic biliary ductal dilatation. The spleen is normal. The gallbladder is within normal limits. The pancreas is of normal contour and attenuation characteristics. There is no evidence of adrenal mass. Both kidneys demonstrate prompt and equal nephrograms. The kidneys are normal in size, shape and configuration. There is no evidence of renal or ureteral mass. No renal or ureteral calculi are identified. There is no hydroureter or hydronephrosis. No evidence for appendicitis. There is no bowel wall thickening. No evidence for small or large bowel obstruction. There is no evidence of abdominal ascites or lymphadenopathy. There is no evidence of intrinsic or extrinsic bladder mass. There is no pelvic ascites or lymphadenopathy. Images of the lung bases show no evidence of pleural or parenchymal mass. There are no pleural effusions. The bony structures are free of lytic or blastic lesions. Moderate diffuse spondylosis. This collection was not formation. IMPRESSION: Fluid filled dilated colon, probably ileus. Minimal thickening of the gallbladder. Moderate sliding hiatal hernia. [address] drama critic used: [id number] Patient is feeling mild discomfort, states she had an episode of loose stools Toradol ordered for comfort Patient is well appearing with normal vitals Advised increased fluid intake and symptomatic treatment Advised patient to followup with Dr. Kamilah Fitzpatrick this week for checkup Scribe Attestation: Documented by Elias Swain acting as a scribe for Jean Carlos Good MD. Provider Scribe Attestation: All medical record entries made by the Scribe were at my direction and personally dictated by me. I have reviewed the chart and agree that the record accurately reflects my personal performance of the history, physical exam, medical decision making, and the department course for this patient. I have also personally directed, reviewed, and agree with the discharge instructions and disposition. Disposition - Clinical Impression Clinical Impression: Gastroenteritis - POA Present On Arrival: None - Disposition Referrals: Mayela Fitzpatrick APN [Family Provider] - Disposition: Routine/Home Disposition Time: 02:30 Condition: STABLE Prescriptions: Dicyclomine [Bentyl] 20 mg PO BID #30 tab Ibuprofen [Motrin Tab] 600 mg PO Q6 #30 tab Ondansetron ODT [Zofran ODT] 4 mg PO Q8 PRN #12 odt PRN Reason: Nausea/Vomiting Instructions: Gastroenteritis (ED) Forms: [employer] (Bengali), [facility] ED School/Work Excuse Print Language: ALBANIAN
[2018-11-22] MEDS ORDERED: Iohexol 300 100 ML IJ ONE (00:40)
[2018-11-22] MEDS ORDERED: Sodium Chloride 0.9% 50 ML IV ONE (00:40)
[2018-11-22 01:38] LABS: SQUAMOUS EPITHIAL 1 /hpf (0-5); URINE BILIRUBIN NEGATIVE (NEGATIVE); URINE BLOOD NEGATIVE (NEGATIVE); URINE CLARITY CLEAR (Clear); URINE COLOR STRAW (YELLOW); URINE GLUCOSE (UA) NEG (NEGATIVE); URINE LEUKOCYTE ESTERASE NEG Leu/uL (Negative); URINE PROTEIN NEGATIVE (NEGATIVE); URINE UROBILINOGEN 0.2-1.0 mg/dL (0.2-1.0)
[2018-11-22 02:30] VITALS: RESP 17
[2018-11-22 02:34] VITALS: BP 134/83; PULSE 86; TEMP 98.1
--- NOTE | 2018-11-22 16:18 | CT ---
Date of service: 11/22/2018 PROCEDURE: CT Abdomen and Pelvis with contrast HISTORY: abd pain COMPARISON: None. TECHNIQUE: Contrast dose: 90 mL Omnipaque 300 Radiation dose: Total exam DLP = 617.03 mGy-cm. This CT exam was performed using one or more of the following dose reduction techniques: Automated exposure control, adjustment of the mA and/or kV according to patient size, and/or use of iterative reconstruction technique. FINDINGS: LOWER THORAX: No infiltrate. Small to moderate hiatal hernia common not included in its entirety in this examination. LIVER: Evaluation of the liver is limited due to failure to include the most superior aspect of the left lobe of the liver on this examination. No mass. Normal contour and attenuation. No biliary dilatation. GALLBLADDER AND BILE DUCTS: Unremarkable. PANCREAS: Unremarkable. No gross lesion or ductal dilatation. SPLEEN: Unremarkable. ADRENALS: Unremarkable. No mass. KIDNEYS AND URETERS: Unremarkable. No hydronephrosis. No solid mass. VASCULATURE: Unremarkable. No aortic aneurysm. No aortic atherosclerotic calcification or mural plaque present. BOWEL: Unremarkable. No obstruction. No gross mural thickening. APPENDIX: Not identified. No secondary findings to suggest acute appendicitis. Please note that there is a mildly atypical location of the cecum, forming a so-called cecal bascule. This is a normal developmental variant. PERITONEUM: No ascites. No pneumoperitoneum. Right inguinal hernia containing only mesenteric fat but no bowel. LYMPH NODES: Unremarkable. No enlarged lymph nodes. BLADDER: Unremarkable. REPRODUCTIVE: Unremarkable uterus. BONES: No acute fracture. OTHER FINDINGS: None. IMPRESSION: Limited examination as above. Hiatal hernia. Right inguinal hernia containing only mesenteric fat and no bowel. No other significant abnormality is identified. The preliminary findings for this examination were reported by [facility] at 1:45 a.m. on 11/22/2018. There is concurrence of this report with the preliminary findings.
--- NOTE | 2018-11-22 18:49 | CARD ---
APPROVED REPORT Date of service: 11/21/2018 EKG Measurement Heart [id number] <Conclusion> Normal sinus rhythm Normal ECG
== END 2018-11-22 02:30 | disposition home or self-care (01) ==
LOC: H.ER 19:52
DX: K52.9 Noninfective gastroenteritis and colitis, unspecified (principal); I10 Essential (primary) hypertension
CPT/HCPCS: 74177; 80053; 81003; 83690; 84484; 85025; 87086; 93005; 96374; 99284; J1885; Q9966; Q9967

== ENCOUNTER 2019-01-26 11:32 | Emergency (ER) | payer MEDICAID ==
[2019-01-26 11:38] VITALS: RESP 18; TEMP 98.3; O2SAT 99
--- NOTE | 2019-01-26 12:32 | ED PDOC ---
HPI: General Adult Time Seen by Provider: 01/26/19 12:30 Chief Complaint (Nursing): Upper Extremity Problem/Injury Chief Complaint (Provider): neck pain/arm pain History Per: Patient (58 y/o female here with neck pain ongoing x 2 years and additional bilateral arm pain ongoing. States she ran out of tramadol. Has been seen recently [facility] and was prescribed medrol dose pack/valium with relief of symptoms. Is currently followed by Dr. Larsen neurology and diagno sis with cervical disease and carpal tunnel syndrome. Patient was advised to f/u with surgeon but has been unable.) Past Medical History Reviewed: Historical Data, Nursing Documentation, Vital Signs Vital Signs: Last Vital Signs Temp 98.3 F 01/26/19 11:37 Pulse 106 H 01/26/19 11:37 Resp 18 01/26/19 11:37 BP 140/96 H 01/26/19 11:37 Pulse Ox 99 01/26/19 11:37 - Medical History PMH: HTN (borderline ), Hypercholesterolemia Denies: Chronic Kidney Disease - Surgical History Surgical History: Appendectomy - Family History Family History: States: Unknown Family Hx - Immunization History Hx Tetanus Toxoid Vaccination: No Hx Influenza Vaccination: No Hx Pneumococcal Vaccination: No - Home Medications Home Medications: Ambulatory Orders Medication Instructions Recorded Albuterol 0.083% [Albuterol 3 ml IH Q4 #100 neb 03/27/17 Sulfate 3 Ml] Albuterol HFA [Ventolin HFA 90 2 puff IH [id number] #1 puff 03/27/17 mcg/actuation (8 g)] Azithromycin [Z-Baljit] 250 mg PO DAILY #6 tab 03/27/17 Guaifenesin 400 mg PO QID #20 tablet 03/27/17 Nebulizer [Aeroeclipse] 1 each MC PRN PRN #1 each 03/27/17 Meclizine [Meclizine*] 25 mg PO Q6 #30 tab 08/18/17 Meclizine [Antivert] 12.5 mg PO Q6 PRN #10 tab 10/16/17 Acetaminophen [Acetaminophen 8 650 mg PO Q8 PRN #21 tablet.er 08/20/18 Hour] Naproxen 500 mg PO BID PRN #20 tab 08/20/18 Tobramycin 0.3% [Tobrex 0.3% Ophth 1 drop OD Q6 #1 bottle 08/20/18 Soln] Dicyclomine [Bentyl] 20 mg PO BID #30 tab 11/22/18 Ibuprofen [Motrin Tab] 600 mg PO Q6 #30 tab 11/22/18 Ondansetron ODT [Zofran ODT] 4 mg PO Q8 PRN #12 odt 11/22/18 traMADol [Ultram] 50 mg PO Q8 PRN #10 tab 01/26/19 - Allergies Allergies/Adverse Reactions: Allergies Allergy/AdvReac Type Severity Reaction Status Date / Time No Known Allergies Allergy Verified 01/26/19 11:34 Review of Systems ROS Statement: Except As Marked, All Systems Reviewed And Found Negative Musculoskeletal: Positive for: Neck Pain, Arm Pain Physical Exam - Reviewed Nursing Documentation Reviewed: Yes Vital Signs Reviewed: Yes - Physical Exam Appears: Positive for: Well, Non-toxic, No Acute Distress Head Exam: Positive for: ATRAUMATIC, NORMAL INSPECTION, NORMOCEPHALIC Skin: Positive for: Normal Color, Warm, DRY Eye Exam: Positive for: EOMI, Normal appearance, PERRL ENT: Positive for: Normal ENT Inspection Neck: Positive for: Normal, Painless ROM. Negative for: Pain On Movement Of Neck (paracervical tenderness) Cardiovascular/Chest: Positive for: Regular Rate, Rhythm Respiratory: Positive for: CNT, Normal Breath Sounds Gastrointestinal/Abdominal: Positive for: Normal Exam, Soft Back: Positive for: Normal Inspection Extremity: Positive for: Normal ROM Neurological/Psych: Positive for: Awake, Alert, Normal Tone - ECG O2 Sat by Pulse Oximetry: 99 - Progress ED Course And Treament: TOradol 30 mg IM x 1 dose. Corina has appt with Dr. Larsen 02/08/2019 I will give referral to hand and neurosurgeon as well. Disposition - Clinical Impression Clinical Impression: Carpal tunnel syndrome, Neck pain - Patient ED Disposition Is Patient to be Admitted: No - Disposition Referrals: Nacho Esteban MD [Staff Provider] - John Paul Perkins MD [Staff Provider] - Disposition: Routine/Home Disposition Time: 12:35 Condition: FAIR Prescriptions: traMADol [Ultram] 50 mg PO Q8 PRN #10 tab PRN Reason: Pain, Severe (8-10) Instructions: Carpal Tunnel Syndrome, Neck Pain Forms: [facility] ED School/Work Excuse Print Language: POLISH
[2019-01-26 13:18] VITALS: BP 125/81; PULSE 93
== END 2019-01-26 12:36 | disposition home or self-care (01) ==
LOC: H.ER 11:32
DX: G56.03 Carpal tunnel syndrome, bilateral upper limbs (principal); M54.2 Cervicalgia; E78.00 Pure hypercholesterolemia, unspecified; I10 Essential (primary) hypertension
CPT/HCPCS: 96372; 99283; J1885